=== PATIENT | female | born 1945 | race Caucasian/White ===

== ENCOUNTER 2022-02-21 16:26 | Observation (INO) ==
[2022-02-22] MEDS ORDERED: Melatonin 3 MG TABLET PO PRN (00:11)
[2022-02-22] MEDS ORDERED: Naloxone 0.4 MG/ML INJ IVP PRN (00:11)
[2022-02-22] MEDS ORDERED: Ondansetron ODT 4 MG TAB.RAPDIS SL PRN (00:11)
[2022-02-22] MEDS ORDERED: 0.9 % Sodium Chloride 1,000 ML IVC SCH (00:15)
[2022-02-22] MEDS ORDERED: Perflutren Lipid Microsphere 1.3 ML in 0.9 % Sodium Chloride 8.7 ML IVP PRN (00:18)
[2022-02-22 07:32] LABS: Bacteria,Urine Few per hpf (None-Few); Bilirubin,Urine Negative (Negative); Blood,Urine Negative (Negative); Clarity,Urine Clear (Clear); Color,Urine Yellow (Yellow); Glucose,Urine (UA) Normal (Normal); Ketones,Urine Trace mg/dL (Negative); Leukocyte Esterase,Urine Negative (Negative); Mucus,Urine Few per lpf (None-Few); Nitrite,Urine Negative (Negative); PH,Urine 5.5 pH Units (5.0-8.0); Protein,Urine 30 mg/dL (Neg-Trace); RBC,Urine 0-3 per hpf (0-3); Specific Gravity,Urine > 1.030 (1.010-1.025); Squamous Epithelial Cell,Urine Few per hpf (None-Few); WBC,Urine 0-3 per hpf (0-3)
[2022-02-22 08:18] LABS: Hematocrit 47.8 % (35.3-44.9); Hemoglobin 16.3 g/dL (11.5-15.4); Mean Corpuscular HGB Conc 34.1 g/dL (31.6-35.5); Mean Corpuscular Hemoglobin 29.5 pg (28.0-33.3); Mean Corpuscular Volume 86.4 fL (83.0-100.0); Mean Platelet Volume 11.6 fL (9.4-12.4); Platelet Count 258 K/mcL (140-400); Red Blood Count 5.53 M/mcL (3.82-4.97); Red Cell Distribution Width 12.7 % (11.5-14.5); White Blood Count 7.7 K/mcL (4.3-11.1)
[2022-02-22 08:27] LABS: Prothrombin Time 11.6 Seconds (9.4-12.1)
[2022-02-22 08:43] LABS: Alanine Aminotransferase 20 Units/L (7-52); Albumin 4.2 g/dL (3.5-5.7); Albumin/Globulin Ratio 1.7 (1.1-2.2); Alkaline Phosphatase 69 Units/L (34-104); Aspartate Amino Transferase 21 Units/L (13-39); BUN/Creatinine Ratio 27 (6-26); Bilirubin,Total 0.9 mg/dL (0.3-1.0); Blood Urea Nitrogen 26 mg/dL (8-23); Calcium 9.2 mg/dL (8.6-10.3); Carbon Dioxide 29 mEq/L (23-29); Chloride 102 mEq/L (98-107); Cholesterol 210 mg/dL (< 200); Globulin 2.5 g/dL (2.4-3.5); Glucose 107 mg/dL (70-105); HDL Cholesterol 42 mg/dL (40-59); LDL Cholesterol,Calculated 128 mg/dL (< 100); LDL Cholesterol,Direct 125 mg/dL (75-193); Osmolality,Calculated 293 (280-300); Potassium 3.5 mEq/L (3.5-5.1); Sodium 139 mEq/L (136-145); Total Protein 6.7 g/dL (6.4-8.9); Triglycerides 202 mg/dL (< 150); Troponin I < 0.03 ng/mL (< 0.04); eGFR For African Americans > 60 (> 60); eGFR For Non-African Americans 55 (> 60)
[2022-02-22] MEDS ORDERED: Aspirin Enteric Coated 81 MG Tablet PO SCH (09:00)
[2022-02-22 09:19] LABS: Folate > 22.3 ng/mL (3.0-16.0); Vitamin B12 292 pg/mL (250-1100)
[2022-02-22 10:21] VITALS: BP 130/66; PULSE 54; TEMP 97.4; O2SAT 96
[2022-02-22 10:40] LABS: Estimated Average Glucose 123 mg/dl; Hemoglobin A1C 5.9 %
== END 2022-02-22 14:54 | disposition home or self-care (01) ==
LOC: 3BNU → SUATTDRO 23:56
PROVIDERS: ADMIT Internal Medicine; ATTEND Registered Nurse